=== PATIENT | female | born 1960 | race African-American/Black ===

== ENCOUNTER 2023-04-29 15:55 | Inpatient (IN) | payer BC ==
[~2023-04-29] VITALS: Ht 160 cm; Wt 117.9 kg
[2023-04-30 01:58] VITALS: BP 127/84; PULSE 72; RESP 16; TEMP 97.7
[2023-04-30] MEDS ORDERED: NALOXONE HCL 0.4MG/ML VIAL IV PRN (03:00)
[2023-04-30] MEDS: HYDROCODONE/ACETAMINOPHEN 5/325MG TABLET PO PRN ×2 (07:09→23:13)
[2023-04-30 07:54] LABS: EOSINOPHILS % 5.7 % (0.0-5.0); HEMATOCRIT. 35.3 % (36.0-48.0); HEMOGLOBIN. 11.9 g/dL (12.0-16.0); LYMPHOCYTES % 40.1 % (20.0-50.0); MEAN CORPUSCULAR HEMOGLOBIN 31.6 pg (28.0-32.0); MEAN CORPUSCULAR HGB CONC 33.7 g/dL (31.0-37.0); MEAN CORPUSCULAR VOLUME 93.7 fL (81.0-99.0); MEAN PLATELET VOLUME 9.7 fl (7.4-10.4); MONOCYTES % 13.4 % (2.0-8.0); NEUTROPHILS % 39.8 % (40.0-76.0); PLATELET 197 x1000/uL (130-400); RED BLOOD CELL COUNT 3.77 mill/uL (4.2-5.4); RED CELL DISTRIBUTION WIDTH 13.2 % (11.6-14.6); WHITE BLOOD COUNT 5.2 x1000/uL (4.5-11.0)
[2023-04-30 08:00] VITALS: BP 153/73; PULSE 68; RESP 18; TEMP 96.9
[2023-04-30 08:12] LABS: CALCIUM 9.2 mg/dL (8.7-10.4); CARBON DIOXIDE 29 mEq/L (21-32); CHLORIDE 105 mEq/L (98-107); CREATININE 0.6 mg/dL (0.6-1.0); GLUCOSE 93 mg/dL (70-105); SODIUM 141 mEq/L (136-145); UREA NITROGEN BLOOD 10 mg/dL (9-23)
[2023-04-30] MEDS ORDERED: ONDANSETRON HCL 4MG/2ML INJ IV PRN (10:30)
[2023-04-30] MEDS ORDERED: GADOTERATE MEGLUMINE 5 MMOL/10 ML VIAL IV ONE (14:49)
[2023-04-30 16:00] VITALS: BP 147/70; PULSE 72; RESP 18; TEMP 97.1
[2023-05-01] VITALS: BP 172/77; PULSE 82; RESP 19; TEMP 97.9
[2023-05-01] MEDS ORDERED: CLONIDINE 0.1MG TABLET PO PRN (03:30)
[2023-05-01 04:00] VITALS: BP 154/64; PULSE 89; RESP 17; TEMP 97.9
[2023-05-01 08:00] VITALS: BP_SYST 139; BP_SYST 185; BP_DIAS 68; BP_DIAS 93; PULSE 83; PULSE 90; RESP 18; RESP 20; TEMP 97.9; TEMP 98
[2023-05-01] MEDS ORDERED: PANT40TA51 PO (08:35)
[2023-05-01] MEDS ORDERED: DOCU-150 PO (08:35)
[2023-05-01] MEDS ORDERED: LIDO700A15 TP (08:35)
[2023-05-01] MEDS ORDERED: BISA10SU62 RC (08:35)
[2023-05-01] MEDS ORDERED: TOPUD PO (08:35)
[2023-05-01] MEDS ORDERED: TEMA7.5C6 PO (08:35)
[2023-05-01] MEDS ORDERED: BACL-141 PO (08:35)
[2023-05-01] MEDS ORDERED: HYDR-4134 PO (08:35)
[2023-05-01 10:00] VITALS: BP 156/74; PULSE 80; RESP 20; TEMP 98.1
[2023-05-01 12:00] VITALS: BP 156/74; PULSE 80; RESP 20; TEMP 98.1
[2023-05-01] MEDS ORDERED: ACETAMINOPHEN 325MG TABLET PO PRN (12:30)
[2023-05-01] MEDS ORDERED: HYDRALAZINE HCL 25MG TABLET PO PRN (12:30)
[2023-05-01] MEDS ORDERED: BISACODYL 10MG SUPP PR PRN (12:30)
[2023-05-01] MEDS ORDERED: ACETAMINOPHEN 500MG TABLET PO PRN (14:00)
[2023-05-01] MEDS: AMLODIPINE 10MG TABLET PO SCH (14:01)
[2023-05-01] MEDS: BACLOFEN 10MG TABLET PO SCH ×2 (14:01→22:10)
[2023-05-01] MEDS: DOCUSATE SODIUM 100MG CAPSULE PO SCH (18:51)
[2023-05-01 20:00] VITALS: BP 156/76; PULSE 78; RESP 20; TEMP 98.1
[2023-05-02] VITALS: BP 133/59; PULSE 77; RESP 20; TEMP 97.9
[2023-05-02 04:00] VITALS: BP 131/58; PULSE 77; RESP 20; TEMP 97.5
[2023-05-02] MEDS: BACLOFEN 10MG TABLET PO SCH ×2 (06:20→14:00)
[2023-05-02] MEDS ORDERED: LIDOCAINE 5% PATCH TOP SCH (09:00)
[2023-05-02] MEDS ORDERED: PANTOPRAZOLE 40MG DR TABLET PO SCH (09:00)
[2023-05-02] MEDS: DOCUSATE SODIUM 100MG CAPSULE PO SCH ×2 (10:11→16:57)
[2023-05-02] MEDS: AMLODIPINE 10MG TABLET PO SCH (10:11)
[2023-05-02 19:46] VITALS: BP 122/62; PULSE 79; TEMP 97.5; O2SAT 99
== END 2023-05-02 20:00 | DRG 552 ==
LOC: 6EST 22:56
PROVIDERS: ADMIT Internal Medicine; ATTEND Internal Medicine
DX: M48.061 Spinal stenosis, lumbar region without neurogenic claudication (principal); Z68.42 Body mass index [BMI] 45.0-49.9, adult; M17.10 Unilateral primary osteoarthritis, unspecified knee; I10 Essential (primary) hypertension; E66.01 Morbid (severe) obesity due to excess calories; M21.371 Foot drop, right foot; M48.02 Spinal stenosis, cervical region; M48.04 Spinal stenosis, thoracic region
CPT/HCPCS: 36415; 72141; 72146; 72158; 80048; 85025; 97162; A9577